=== PATIENT | female | born 1960 | race Caucasian/White ===

== ENCOUNTER 2017-04-01 15:57 | Emergency (ER) | payer BC ==
[2017-04-01 16:43] VITALS: BP 149/87
--- NOTE | 2017-04-01 17:32 | UC ---
Skin Complaint HPI - HPI Summary HPI Summary: For about 1.5 weeks has noticed a sensitive "nervy" area deep in L labia majora , no swelling or notable mass. Today saw small red dots in a linear streak showed up on R low abdomen after shower. Rash is somewhat sore. Has had a very stressful spring with family illness, denies serious personal illness. - History of Current Complaint Chief Complaint: UCRash Time Seen by Provider: 04/01/17 17:02 Stated Complaint: PAINFUL RASH Hx Obtained From: Patient Hx Last Menstrual Period: 12/22/14 ?: No Onset/Duration: Gradual Onset, Lasting Hours Onset Severity: Mild Current Severity: Mild Aggravating: Touch Alleviating: Nothing Associated Signs & Symptoms: Positive: Rash - Allergy/Home Medications Allergies/Adverse Reactions: Allergies Allergy/AdvReac Type Severity Reaction Status Date / Time Penicillins Allergy Severe Anaphylatic Verified 03/12/16 15:23 Shock Sulfa Drugs Allergy Severe Anaphylatic Verified 03/12/16 15:23 Shock Ciprofloxacin [From Cipro] Allergy Intermediate Nausea Verified 03/12/16 15:23 Ofloxacin [From Floxin] Allergy Intermediate Diarrhea Verified 03/12/16 15:23 Review of Systems Constitutional: Negative Skin: Rash Eyes: Negative ENT: Negative Respiratory: Negative Cardiovascular: Negative Gastrointestinal: Negative Genitourinary: Negative Motor: Negative Neurovascular: Negative Musculoskeletal: Negative Neurological: Negative Psychological: Negative All Other Systems Reviewed And Are Negative: Yes PMH/Surg Hx/FS Hx/Imm Hx Previously Healthy: Yes Other History Of: Negative For: Anticoagulant Therapy - Surgical History Surgical History: Yes Surgery Procedure, Year, and Place: hx tonsilectomy,ureter ? type procedue also as a child - Family History Known Family History: Negative: Blood Disorder - Social History Occupation: Employed Full-time Lives: With Family Alcohol Use: Rare Substance Use Type: None Smoking Status (MU): Never Smoked Tobacco Physical Exam Triage Information Reviewed: Yes Appearance: Well-Appearing, No Pain Distress, Well-Nourished Vital Signs: Initial Vital Signs Temp 98.7 F 04/01/17 16:35 Pulse 87 04/01/17 16:35 Resp 18 04/01/17 16:35 BP 149/87 04/01/17 16:35 Pulse Ox 98 04/01/17 16:35 Vital Signs Reviewed: Yes Eye Exam: Normal, Other - PERRL Eyes: Positive: Conjunctiva Clear ENT Exam: Normal ENT: Positive: Normal ENT inspection, Hearing grossly normal, Pharynx normal, TMs normal Dental Exam: Normal Neck exam: Normal Neck: Positive: Supple, Nontender, No Lymphadenopathy - no inguinal LAD Respiratory Exam: Normal Respiratory: Positive: Chest non-tender, Lungs clear, Normal breath sounds, No respiratory distress, No accessory muscle use Cardiovascular Exam: Normal Cardiovascular: Positive: RRR, No Murmur Musculoskeletal Exam: Normal Neurological Exam: Normal Neurological: Positive: Alert Psychological Exam: Normal Skin Exam: Other - separate red and vesicular papules on R low abdomen/pelvic area, not grouped, in linear distribution Course/Dx - Diagnoses Provider Diagnoses: shingles. vs. contact dermatitis. elevated blood pressure due to stress Discharge - Discharge Plan Condition: Stable Disposition: HOME Prescriptions: ValACYclovir (*) [Valtrex 1 GM(*)] 1 gm PO TID #21 tab Patient Education Materials: Shingles (ED) Referrals: Jon Rodriguez MD [Primary Care Provider] - Additional Instructions: As we discussed, the spots on your lower abdomen do NOT look characteristic for shingles, however their distribution, your age, and your recent stress do make shingles a very likely possibility. Please take the medication as prescribed and plan to follow up with your primary care provider if your symptoms persist or worsen.
== END 2017-04-01 17:30 | disposition home or self-care (01) ==
LOC: UCEAST 15:57
DX: R21 Rash and other nonspecific skin eruption (principal); R03.0 Elevated blood-pressure reading, without diagnosis of hypertension; Z88.1 Allergy status to other antibiotic agents; Z88.0 Allergy status to penicillin; Z88.2 Allergy status to sulfonamides
CPT/HCPCS: 99212; G0463